=== PATIENT | male | born 1950 | race Caucasian/White ===

== ENCOUNTER 2017-09-05 13:25 | Outpatient (CLI) | payer MEDICARE, MEDICAID ==
--- NOTE | 2017-09-06 11:57 | Diagnostic Imaging Report ---
Indication: COUGH Technique: Two views of the chest Comparison: none Findings: There is atelectasis of the left lung base. The lungs and pleural spaces are otherwise clear. Heart size is upper limits of normal. There is tortuous. There is a retrocardiac hiatal hernia. Foreign body overlying the mediastinum on the AP view is not seen on the lateral view, presumably outside the patient. Bones are unremarkable. Impression: Left basilar atelectasis Hiatal hernia No acute process otherwise
== END 2017-09-05 15:25 | disposition home or self-care (01) ==
LOC: RAD 13:25
DX: R05 Cough (principal); J98.11 Atelectasis; K44.9 Diaphragmatic hernia without obstruction or gangrene
CPT/HCPCS: 71020

== ENCOUNTER 2017-09-12 11:00 | Outpatient (CLI) | payer MEDICARE | END 2017-09-12 13:00 | disposition home or self-care (01) | LOC: CAR 11:00 | DX: R94.31 Abnormal electrocardiogram [ECG] [EKG] (principal) | CPT/HCPCS: 93017; 93350 ==

== ENCOUNTER 2018-06-22 13:44 | Outpatient (CLI) | payer MEDICARE, MEDICAID ==
--- NOTE | 2018-06-22 16:08 | Diagnostic Imaging Report ---
Indication: Abdominal pain Technique: Continuous helical transaxial imaging of the abdomen and pelvis was obtained from the lung bases to the pubic symphysis during intravenous contrast administration. Coronal 2-D reformats were also obtained. Study obtained in a Siemens sensation [address] Automatic Exposure Control was utilized. Total Dose length Product (DLP): 819.[address] Dose Index Volume (CTDIvol): 15.7 mGy Comparison: None Findings: The bladder is markedly distended measuring 22 x 18 x 22 cm. There is associated bilateral hydronephrosis. There are bilateral renal cysts present. There are tiny cystic structures in the liver. Pancreas is unremarkable. The appendix is normal. Small bilateral inguinal hernias containing fat noted. Aortoiliac aspirations are moderate in degree. There is a prominent hiatal hernia. There is no free fluid or free air. There is narrowing of intervertebral discs and accompanying endplate osteophyte formation. Hypertrophied facet joints also demonstrated. IMPRESSION: Severe distention of the urinary bladder measuring 22 x 18 x 22 cm. Valadez catheter recommended. Associated bilateral hydronephrosis. Multiple bilateral renal cysts. Multiple hypodensities in the liver probably cysts although too small to characterize. Other incidental findings as above The CT scanner at [facility] is accredited by the [employer] and the scans are performed using dose optimization techniques as appropriate to a performed exam including Automatic Exposure control.
== END 2018-06-22 15:44 | disposition home or self-care (01) ==
LOC: CAT 13:44
DX: R10.9 Unspecified abdominal pain (principal); R11.10 Vomiting, unspecified; N32.89 Other specified disorders of bladder; N13.30 Unspecified hydronephrosis; N28.1 Cyst of kidney, acquired
CPT/HCPCS: 74177; Q9967